=== PATIENT | female | born 1975 | race Caucasian/White ===

== ENCOUNTER 2025-02-17 14:15 | Outpatient (CLI) | payer BC | END 2025-02-17 14:16 | disposition home or self-care (01) | LOC: CSHMAMMO 14:15 | PROVIDERS: ATTEND Plastic Surgery | DX: N63.11 Unspecified lump in the right breast, upper outer quadrant (principal) | CPT/HCPCS: 77066; G0279 ==

== ENCOUNTER → 2025-02-18 | Day surgery (SDC) | payer BC | LOC: CSHULT 10:51 | PROVIDERS: ATTEND Family Medicine | PROC: 0H9T0ZX Drainage of Right Breast, Open Approach, Diagnostic (ICD-10-PCS; principal; 2025-02-18) | DX: C50.811 Malignant neoplasm of overlapping sites of right female breast (principal) | CPT/HCPCS: 19083; 88305; 88341; 88342; A4648 ==

== ENCOUNTER 2025-03-08 10:25 | Outpatient (CLI) | payer BC | END 2025-03-08 10:26 | disposition home or self-care (01) | LOC: CSHMRI 10:25 | PROVIDERS: ATTEND Family Medicine | DX: D05.11 Intraductal carcinoma in situ of right breast (principal); I77.810 Thoracic aortic ectasia | CPT/HCPCS: C8908 ==

== ENCOUNTER 2025-03-29 08:40 | Outpatient (CLI) | payer BC ==
[2025-03-29 09:46] LABS: #Basophils 0.03 10x3/uL (0.0-0.2); #Eosinophils 0.07 10x3/uL (0.0-0.5); #Monocytes 0.50 10x3/uL (0.0-1.1); #Neutrophils 2.41 10x3/uL (1.5-8.4); %Basophils 0.7 % (0.0-2.0); %Eosinophils 1.5 % (0.0-6.0); %Lymphocytes 33.3 % (18.0-47.0); %Monocytes 11.0 % (0.0-10.0); %Neutrophils 53.3 % (40.0-75.0); Hematocrit 41.6 % (34.9-44.5); Hemoglobin 13.6 g/dL (12.0-15.5); Mean Corpuscular Hemoglobin 30.3 pg (27.0-33.0); Mean Corpuscular Volume 92.7 fL (81.6-98.3); Platelet Count 261 10x3/uL (150-450); Red Blood Cell (RBC) Count 4.49 10x6/uL (3.90-5.03); White Blood Cell (WBC) Count 4.53 10x3/uL (3.5-10.5)
[2025-03-29 10:04] LABS: Anion Gap 11 mmol/L (10-20); BUN (Urea Nitrogen) 14 mg/dL (7.0-18.7); Calc. Creatinine Clearance 0 mL/min (70-130); Calcium 9.1 mg/dL (7.8-10.44); Carbon Dioxide 30 mmol/L (22-29); Chloride 102 mmol/L (98-107); Glucose 76 mg/dL (70-105); Potassium 4.1 mmol/L (3.5-5.1); Sodium 139 mmol/L (136-145)
== END 2025-03-29 08:41 | disposition home or self-care (01) ==
LOC: CSHLAB 08:40
PROVIDERS: ATTEND Specialist
DX: Z01.818 Encounter for other preprocedural examination (principal); C50.911 Malignant neoplasm of unspecified site of right female breast; R94.31 Abnormal electrocardiogram [ECG] [EKG]
CPT/HCPCS: 80048; 85025; 93005; 93010

== ENCOUNTER 2025-03-29 10:08 | Outpatient (CLI) | payer BC | END 2025-03-29 10:09 | disposition home or self-care (01) | LOC: CSHMAMMO 10:08 | PROVIDERS: ATTEND Specialist | DX: C50.911 Malignant neoplasm of unspecified site of right female breast (principal) | CPT/HCPCS: 96372; A9697 ==

== ENCOUNTER 2025-04-07 05:44 | Day surgery (SDC) | payer BC ==
[2025-03-29 09:07] VITALS: BMI 19.1
[2025-04-07] MEDS ORDERED: Ketorolac Tromethamine 30 MG (1 mL) VIAL ONE (07:04)
[2025-04-07] MEDS ORDERED: Acetaminophen 500 MG TAB ONE (07:05)
[2025-04-07] MEDS ORDERED: Bupivacaine/Epinephrine 0.25% 30 ML VIAL ONE (07:18)
[2025-04-07] MEDS ORDERED: CEFAZOLIN 2 GM VIAL ONE (07:18)
[2025-04-07] MEDS ORDERED: Ondansetron PF 4 MG/2 ML Vial ONE ×2 (07:20→11:15)
[2025-04-07] MEDS ORDERED: PROPOFOL 20 ML ONE (07:20)
[2025-04-07] MEDS ORDERED: Rocuronium Bromide 10 MG/ML (10ML VIAL) ONE (09:11)
[2025-04-07] MEDS ORDERED: HYDROcodone/Acetaminophen 5/325 mg Tablet ONE (12:31)
== END 2025-04-07 13:00 | disposition home or self-care (01) ==
LOC: CSHSDC 05:44
PROVIDERS: ATTEND Specialist
PROC: 0HNT0ZZ Release Right Breast, Open Approach (ICD-10-PCS; principal; 2025-04-07)
PROC: 07B50ZZ Excision of Right Axillary Lymphatic, Open Approach (ICD-10-PCS; principal; 2025-04-07)
PROC: 0HBT0ZZ Excision of Right Breast, Open Approach (ICD-10-PCS; principal; 2025-04-07)
DX: C50.811 Malignant neoplasm of overlapping sites of right female breast (principal); C77.3 Secondary and unspecified malignant neoplasm of axilla and upper limb lymph nodes; I10 Essential (primary) hypertension; Z17.0 Estrogen receptor positive status [ER+]; Z17.21 Progesterone receptor positive status; Z17.32 Human epidermal growth factor receptor 2 negative status; Z90.710 Acquired absence of both cervix and uterus; Z79.899 Other long term (current) drug therapy
CPT/HCPCS: 76098; 88307; J1100; J1885; J2250; J2704; J3010; L8600

== ENCOUNTER 2025-06-14 11:41 | Outpatient (CLI) | payer BC ==
[2025-06-14 13:04] LABS: Glucose, Urine (Dipstick) Normal (Negative); Leukocyte Negative (Negative); Protein, Urine (Dipstick) Negative (Neg-Trace); Specific Gravity, Urine 1.015 (1.005-1.030)
[2025-06-14 13:05] LABS: Hematocrit 41.3 % (34.9-44.5); Hemoglobin 13.8 g/dL (12.0-15.5); Mean Corpuscular Hemoglobin 30.6 pg (27.0-33.0); Mean Corpuscular Volume 91.6 fL (81.6-98.3); Platelet Count 207 10x3/uL (150-450); Red Blood Cell (RBC) Count 4.51 10x6/uL (3.90-5.03); White Blood Cell (WBC) Count 4.47 10x3/uL (3.5-10.5)
[2025-06-14 13:34] LABS: BHCG - Serum Negative (NEGATIVE); Pregs Control Background? CLEAR/WHITE (CLR/WHITE); Pregs Control Bar Appear? YES (CONTROL BAR)
== END 2025-06-14 11:42 | disposition home or self-care (01) ==
LOC: CSHLAB 11:41
PROVIDERS: ATTEND Obstetrics & Gynecology
DX: Z01.812 Encounter for preprocedural laboratory examination (principal); Z85.3 Personal history of malignant neoplasm of breast
CPT/HCPCS: 81003; 84703; 85027

== ENCOUNTER 2025-06-17 07:41 | Day surgery (SDC) | payer BC ==
[2025-06-14 12:25] VITALS: BMI 19.7
[2025-06-17] MEDS ORDERED: CEFAZOLIN 2 GM VIAL ONE (08:07)
[2025-06-17] MEDS ORDERED: Lidocaine 2% MPF 10 ML AMP (For Epidural Use) ONE (08:07)
[2025-06-17] MEDS ORDERED: Bupivacaine HCl 0.5%/Epinephrine 1:200,000/PF 30 ml Vial ONE (08:07)
[2025-06-17] MEDS ORDERED: SUGAMMADEX SODIUM 200 MG/2 ML VIAL ONE (09:21)
[2025-06-17] MEDS ORDERED: Rocuronium Bromide 10 MG/ML (10ML VIAL) ONE (09:21)
[2025-06-17] MEDS ORDERED: PROPOFOL 20 ML ONE ×2 (09:21→10:25)
[2025-06-17] MEDS ORDERED: HYDROcodone/Acetaminophen 7.5/325 mg Tablet ONE (12:19)
== END 2025-06-17 13:55 | disposition home or self-care (01) ==
LOC: CSHSDC 07:41
PROVIDERS: ATTEND Obstetrics & Gynecology
PROC: 0UT64ZZ Resection of Left Fallopian Tube, Percutaneous Endoscopic Approach (ICD-10-PCS; principal; 2025-06-17)
PROC: 0UT14ZZ Resection of Left Ovary, Percutaneous Endoscopic Approach (ICD-10-PCS; principal; 2025-06-17)
DX: N83.202 Unspecified ovarian cyst, left side (principal); K66.0 Peritoneal adhesions (postprocedural) (postinfection); I10 Essential (primary) hypertension; Z85.3 Personal history of malignant neoplasm of breast; Z79.899 Other long term (current) drug therapy
CPT/HCPCS: 88305; J1100; J2250; J2704; S2900